=== PATIENT | female | born 1965 | race Caucasian/White ===

== ENCOUNTER 2023-03-11 15:43 | Outpatient (REF) | payer BC, SELFPAY ==
[2023-03-11 19:35] LABS: Abs Immature Grans 0.07 10^3/uL (0.0-0.06); Absolute Basophil Count 0.08 10^3/uL (0.0-0.2); Absolute Eosinophil Count 0.31 10^3/uL (0.0-0.7); Absolute Lymphocyte Count 3.27 10^3/uL (1.2-3.4); Absolute Monocyte Count 0.29 10^3/uL (0.1-0.8); Absolute Neutrophil Count 4.88 10^3/uL (1.2-6.7); Basophils % 0.9; Eosinophils % 3.5; HCT 41.2 % (36.0-46.0); HGB 14.5 g/dL (11.2-15.7); Immature Grans % 0.8; Lymphocytes % 36.7; MCH 31.3 pg (27.0-33.0); MCHC 35.2 % (32.0-36.0); MCV 89 fL (80-95); MPV 10.8 fL (8.0-11.0); Monocytes % 3.3; Neutrophils % 54.8; Platelet Count 270 10^3/uL (130-400); RBC 4.64 10^6/uL (3.93-5.22); RDW 11.8 % (11.7-14.6); RDW-SD 37.7 fL
[2023-03-11 19:50] LABS: ALT 21 U/L (14-59); AST 11 U/L (15-37); Albumin 3.6 g/dL (3.4-5.0); Alkaline Phosphatase 87 U/L (46-116); Anion Gap 5.3 mmol/L (3-11); BUN 5 mg/dL (7-18); Bilirubin, Total 0.3 mg/dL (0.2-1.0); CO2 29.7 mmol/L (21.0-32.0); CREATININE 0.6 mg/dL (0.55-1.02); Calculated LDL 137 mg/dL (<100); Chloride 101 mmol/L (98-107); Cholesterol 233 mg/dL (<200); Estimated GFR 103.33 (mL/min/1.73m2); HDL Cholesterol 47 mg/dL (40-60); Potassium 4.2 mmol/L (3.5-5.1); Sodium 136 mmol/L (136-145); Total Protein 7.7 g/dL (6.4-8.2); Triglyceride 245 mg/dL (<150)
[2023-03-11 20:06] LABS: Glucose 311 mg/dL (74-106)
[2023-03-11 20:07] LABS: Hemoglobin A1C 10.1 % (<5.7)
== END 2023-03-11 15:44 | disposition home or self-care (01) ==
LOC: NCHCN 15:43
PROVIDERS: Visit Provider Student in an Organized Health Care Education/Training Program
DX: E11.9 Type 2 diabetes mellitus without complications (principal); E55.9 Vitamin D deficiency, unspecified; R68.89 Other general symptoms and signs
CPT/HCPCS: 80053; 80061; 82306; 83036; 84443; 85025

== ENCOUNTER 2024-03-15 23:13 | Emergency (ER) | payer OTHER, SELFPAY ==
[2024-03-15 23:17] VITALS: BP 160/75; PULSE 80; RESP 18; TEMP 36.3; O2SAT 100
--- NOTE | 2024-03-15 23:56 | ED.GENADUL_ITS ---
Discharge Plan Disposition Patient Disposition: Home Condition: Good Discharge Details Clinical Impression: Skin lesion of back Primary Care Provider: GAEL GARAY ED Provider: Mitch Crowell Home Meds and New Rx's Prescriptions: New hydroxyzine HCl 25 mg tablet 25 mg PO TID PRNQty: 30 0RF No Action cyclobenzaprine 5 mg tablet 5 mg PO TID PRN gabapentin 100 mg capsule 200 mg PO TID insulin glargine [Lantus Solostar U-100 Insulin] 100 unit/mL (3 mL) insulin pen 24 unit subcut QAM metformin 500 mg tablet extended release 24 hr 500 mg PO DAILY Ozempic 0.25 mg or 0.5 mg (2 mg/3 mL) pen injector 0.25 mg subcut QWEEK Rx Instructions: for 4 weeks pravastatin 20 mg tablet 20 mg PO DAILY aspirin 81 mg capsule 81 mg PO DAILY clopidogrel [Plavix] 75 mg tablet 75 mg PO DAILY Discharge Instructions Instructions: Skin Rash ED Additional Instructions: At this time the lesions on your back and shoulders appear to demonstrate evidence of a mild infection. With your work location you likely have exposure to MRSA. Please apply the mupirocin ointment to each lesion 2-3 times per day. Please do this for the next 1 to 2 weeks or until the lesions resolve. As we discussed together this may have originated from an infected hair follicle, but there is also concern that it could be a form of vasculitis especially considering your autoimmune conditions. Please follow-up closely with your primary care provider for reassessment to evaluate for improvement after a week of therapy. As we discussed, you did state that you have a significant amount of hydroxyzine at home. If this is not you can take 25 mg every 8 hours as needed for itching. Otherwise use the prescription that was given. If you notice any worsening of your symptoms, or any new symptoms such as vomiting, diarrhea, fever, chills, shortness of breath, chest pain, numbness, weakness, or fainting , please return immediately to the emergency department for reevaluation. Please follow up with your primary care provider as soon as possible for reassessment and reevaluation. As always, it was a pleasure participating in your medical care today. Referrals: GAEL GARAY, [employer] [Primary Care Provider] - Discharge Data Discharge Date/Time-TO BE ENTERED AT DEPARTURE: 03/16/24 00:07 HPI General Date/Time Provider Initiated Documentation: 03/15/24 23:16 . HPI Narrative: This is a pleasant 59-year-old female with a past medical history of discoid lupus, peripheral arterial disease who is managed at [facility], and takes daily Plavix and aspirin, type 2 diabetes on both metformin and insulin, high cholesterol, rheumatoid arthritis, previous hysterectomy, who presents today for evaluation of a few scattered lesions on the shoulders and the back of her neck. Patient states that she infrequently but fairly regularly gets few small red lesions on her back and neck. She states that she does pick at these things, and eventually with washing soap and time they go away on their own. She developed a few of these lesions on her shoulders and the back of her neck recently, and has been washing them but they have not been going away. They have been present for the last week and a half. She does admit to having an intermittent fever, but is afebrile today. She does admit to notable itching. She does have hydroxyzine at home but has not taken it. She was previously on Rituxan but has recently stopped this. She has been washing these lesions daily with soap and water and does admit to some drainage and discharge. She denies any other complaints at this time. No other modifying factors. She denies any new medications. She denies any known history of vasculitis. The patient is an TRAILER PARK MANAGER, and does work at the [employer] Home Medications ?Medication ?Instructions ?Recorded ?Confirmed cyclobenzaprine 5 mg tablet 5 mg PO TID PRN 09/19/23 03/15/24 gabapentin 100 mg capsule 200 mg PO TID 09/19/23 03/15/24 insulin glargine 100 unit/mL (3 24 unit subcut QAM 09/19/23 03/15/24 mL) subcutaneous pen (Lantus Solostar U-100 Insulin) metformin 500 mg tablet,extended 500 mg PO DAILY 09/19/23 03/15/24 release 24 hr pravastatin 20 mg tablet 20 mg PO DAILY 09/19/23 03/15/24 semaglutide 0.25 mg or 0.5 mg (2 0.25 mg subcut QWEEK 09/19/23 03/15/24 mg/3 mL) subcutaneous pen injector (Ozempic) aspirin 81 mg capsule 81 mg PO DAILY 03/15/24 03/15/24 clopidogrel 75 mg tablet (Plavix) 75 mg PO DAILY 03/15/24 03/15/24 hydroxyzine HCl 25 mg tablet 25 mg PO TID PRN #30 tabs 03/15/24 Previous Rx's ?Medication ?Instructions ?Recorded hydroxyzine HCl 25 mg tablet 25 mg PO TID PRN #30 tabs 03/15/24 Allergies Allergy/AdvReac Type Severity Reaction Status Date / Time hydrocodone Allergy Unknown Other (See Verified 03/15/24 23:20 Comment) hydroxychloroquine Allergy Unknown Other (See Verified 03/15/24 23:20 Comment) morphine Allergy Unknown Other (See Verified 03/15/24 23:20 Comment) trazodone Allergy Unknown Other (See Verified 03/15/24 23:20 Comment) General Stated Complaint: RashLesion MEGAN: 4 Exam Narrative Exam Narrative: 1.Const: Well-nourished, Well-developed, appearing stated age 2.Eyes: PERRL, no conjunctival injection, and symmetrical lids. 3.ENT: Atraumatic external nose and ears. Moist MM. Neck: Symmetric, trachea midline, No thyromegaly. 4.CVS: +S1/S2, Peripheral pulses 2+ and equal in all extremities. Brisk capillary refill in all extremities. 5.RESP: Unlabored respiratory effort. Clear to auscultation bilaterally. No wheezes rales or rhonchi 6.GI: Soft, Nontender/Nondistended, No hepatosplenomegaly. No guarding or rebound. 7.MSK: Normocephalic/Atraumatic, Extremities w/o deformity or ttp No cyanosis or clubbing, Normal movement of all extremities 8.Skin: Warm, Dry. 4 small lesions are noted on the left and right shoulder, back and then posterior aspect of the neck. There is mildly erythematous with s lightly diffuse border. Total diameter is probably around 1 to 2 cm. In the center is an eschar which is brown in color on the 2 of the lesions, no eschar present on one of the lesions, and a mild ulcer like component noted on the fourth lesion. No active drainage. No fluctuance. No induration to suggest abscess. Negative Nikolsky sign. No large vesicles or bulla. No palpable purpura. No oral lesions. No mucosal lesions. No evidence of severe cellulitis. No evidence of vaccine preventable rash. 9.Neuro: hand decorator II-XII grossly intact. Sensation grossly intact, no focal neurologic deficits. 10.Psych: (AAO) x3. Appropriate mood and affect Course Vital Signs Vital signs: Vital Signs Temperature 36.3 C L 03/15/24 23:17 Pulse 80 03/15/24 23:17 Respiratory Rate 18 03/15/24 23:17 Blood Pressure 160/75 H 03/15/24 23:17 Pulse Oximetry 100 03/15/24 23:17 Temperature 36.3 C L 03/15/24 23:17 Temperature Source Temporal Artery Scan 03/15/24 23:17 Pulse 80 03/15/24 23:17 Respiratory Rate 18 03/15/24 23:17 Blood Pressure 160/75 H 03/15/24 23:17 Blood Pressure Position Sitting 03/15/24 23:17 Pulse Oximetry 100 03/15/24 23:17 Oxygen Delivery Method Room Air 03/15/24 23:17 Oxygen Flow Rate 0 03/15/24 23:17 Pain Level 10 03/15/24 23:17 Medical Decision Making This is a pleasant 59-year-old female with a past medical history of discoid lupus, peripheral arterial disease who is managed at [facility], and takes daily Plavix and aspirin, type 2 diabetes on both metformin and insulin, high cholesterol, rheumatoid arthritis, previous hysterectomy, who presents today for evaluation of a few scattered lesions on the shoulders and the back of her neck. Patient states that she infrequently but fairly regularly gets few small red lesions on her back and neck. She states that she does pick at these things, and eventually with washing soap and time they go away on their own. She developed a few of these lesions on her shoulders and the back of her neck recently, and has been washing them but they have not been going away. They have been present for the last week and a half. She does admit to having an intermittent fever, but is afebrile today. She does admit to notable itching. She does have hydroxyzine at home but has not taken it. She was previously on Rituxan but has recently stopped this. She has been washing these lesions daily with soap and water and does admit to some drainage and discharge. She denies any other complaints at this time. No other modifying factors. She denies any new medications. She denies any known history of vasculitis. The patient is an TRAILER PARK MANAGER, and does work at the [employer] The patient's physical exam demonstrates 4 small lesions are noted on the left and right shoulder, back and then posterior aspect of the neck. There is mildly erythematous with slightly diffuse border. Total diameter is probably around 1 to 2 cm. In the center is an eschar which is brown in color on the 2 of the lesions, no eschar present on one of the lesions, and a mild ulcer like component noted on the fourth lesion. No active drainage. No fluctuance. No induration to suggest abscess. Negative Nikolsky sign. No large vesicles or bulla. No palpable purpura. No oral lesions. No mucosal lesions. No evidence of severe cellulitis. No evidence of vaccine preventable rash. Additionally there are multiple old scars present that represent previous lesions that appear quite similar. Concern for potential folliculitis. These do not appear to represent evidence to suggest scabies, insect bite, significant cellulitis, abscess, erythema nodosum, anthrax, squamous cell carcinoma, or other significant abnormality. Differential does include a notably less likely potential vasculitis as the potential initial causative component that is made worse by picking and bacterial superinfection, potentially MRSA especially considering the patient's work and exposure to chronic care facilities. At this time we will recommend that the patient starts hydroxyzine for the itching. We will give mupirocin ointment here to apply to the lesions. Recommend conservative therapy for the next week with this. Skin cultures were not obtained secondary to concern for contamination. If the patient does not have improvement she may need biopsy or potential steroids if there is an autoimmune component. Recommend close follow- up with PCP. No current clinical evidence of staph scalded skin syndrome, erythema multiforme, erythema migrans, toxic epidermal necrolysis, Sanders-Dionicio syndrome, Kawasaki-like rash, meningococcemia, pemphigus vulgaris, or necrotizing fasciitis. Discussed red flags for which to return. I have extensively reviewed the treatment plan and discharge instructions with the patient. I have addressed all patient concerns at this time. The patient was made aware of what symptoms to monitor for that would warrant a return to the emergency department. Discussed the plan with the patient, they demonstrate verbal understanding and agreement with our assessment and plan at this time. The documentation in this chart was dictated using [employer] dictation software. Please excuse any dictation errors. Quality:SDOH Health Related Social Needs: No Data to Display PFSH All Active Problems (Updated 03/15/24 @ 23:58 by Mitch Crwoell DO) Skin lesion of back (Acute) Medical History (Updated 03/15/24 @ 23:58 by Mitch Crowell DO) Cramps of lower extremity Adrenal myelolipoma Rheumatoid arthritis Tenosynovitis Hyperlipidemia Atherosclerosis of coronary artery without angina pectoris Serrated polyp of colon Diabetic neuropathy Vitamin D deficiency Type 2 diabetes mellitus Complex regional pain syndrome i of left lower limb Peripheral neuropathic pain Pain management Degeneration of lumbar or lumbosacral intervertebral disc Lumbar spondylosis Chronic diarrhea History of depression Generalized anxiety disorder Steatosis of liver Esophagitis Muscle tightness Mass of thoracic vertebra History of neck pain Chronic pain Weak arterial pulse Surgical History (Updated 08/29/23 @ 14:48 by Milly Enriquez) Hx of total hysterectomy History of arthroscopic surgery of shoulder Social History (Updated 08/29/23 @ 14:49 by Milly Enriquez) Smoking/Tobacco Use Status: Current every day Tobacco Type: cigarettes Smoking risk assessment performed?: Yes Alcohol Intake: never Drug use: Never Substance use type: does not use Do you feel safe at home: Yes Do you feel safe in your relationship?: Yes
[2024-03-16] MEDS: Mupirocin 2% Oint. 22 GM TUBE TP (00:07)
== END 2024-03-16 00:07 | disposition home or self-care (01) ==
PROVIDERS: Emergency Provider Student in an Organized Health Care Education/Training Program; PCP Nurse Practitioner Family
DX: L98.9 Disorder of the skin and subcutaneous tissue, unspecified (principal); E11.9 Type 2 diabetes mellitus without complications; F17.210 Nicotine dependence, cigarettes, uncomplicated
CPT/HCPCS: 99283; 99284

== ENCOUNTER 2024-05-15 13:23 | Outpatient (REF) | payer OTHER, SELFPAY ==
[2024-05-15 16:10] LABS: ALT 20 U/L (14-59); AST 15 U/L (15-37); Albumin 3.4 g/dL (3.4-5.0); Alkaline Phosphatase 85 U/L (46-116); Anion Gap 8.7 mmol/L (3-11); BUN 14 mg/dL (7-18); Bilirubin, Total 0.3 mg/dL (0.2-1.0); CO2 28.3 mmol/L (21.0-32.0); CREATININE 0.7 mg/dL (0.55-1.02); Calcium 9.4 mg/dL (8.5-10.1); Calculated LDL 96 mg/dL (<100); Chloride 104 mmol/L (98-107); Cholesterol 180 mg/dL (<200); Estimated GFR 98.95 (mL/min/1.73m2); Glucose 137 mg/dL (74-106); HDL Cholesterol 47 mg/dL (>or=50); Potassium 4.3 mmol/L (3.5-5.1); Sodium 141 mmol/L (136-145); Total Protein 7.6 g/dL (6.4-8.2); Triglyceride 185 mg/dL (<150)
[2024-05-15 16:16] LABS: Hemoglobin A1C 6.2 % (<5.7)
== END 2024-05-15 13:24 | disposition home or self-care (01) ==
LOC: NCHCN 13:23
PROVIDERS: PCP Nurse Practitioner Family; Visit Provider Nurse Practitioner Family
DX: E11.9 Type 2 diabetes mellitus without complications (principal); E78.5 Hyperlipidemia, unspecified
CPT/HCPCS: 80053; 80061; 83036

== ENCOUNTER 2024-06-12 00:30 | Outpatient (CLI) | payer OTHER, SELFPAY ==
--- NOTE | 2024-06-12 | DI.MRI_ITS ---
Exam(s) MR LUMBAR SPINE WO EXAM: MR LUMBAR SPINE WO CLINICAL HISTORY: Intervertebral disc degeneration, lumbar region, with discogenic back pain. TECHNIQUE: Multiplanar multisequence MRI of the Lumbar spine was performed. MR MRI LUMBAR SPINE WO CONTRAST from 09/19/2019 MR MR CERVICAL SPINE WO from 06/12/2024 FINDINGS: Conus medullaris is at normal level. There is no evidence of conus mass nor subjacent clumping of in trathecal nerve roots to suggest arachnoiditis. The distal thecal sac appears unremarkable.There is no evidence of Tarlov intrasacral cysts nor other significant findings within the sacral canal Bones:There are no fractures nor ominous osseous lesions in the lumbar vertebral bodies and visualize d sacrum. Benign intraosseous hemangioma in the left side of the L2 vertebral body is again noted. There is no evidence of ominous marrow signal. No scoliosis evident. With respect to the individual disc space levels... T12-L1: Unremarkable L1-2: Normal disc height and signal. No disc herniation nor central canal stenosis.No foraminal steno sis L2-3: Normal disc height. Again noted is a left paracentral disc herniation which again exhibits unch anged 17 mm caudal migration behind the left side of the L3 vertebral body.This indents the left side of the thecal sac and occupies part of the left lateral recess. Size and appearance of this disc he rniation is similar to the prior lumbar spine MRI scan of October 2018.The disc herniation does not extend into the exiting left neural foramen and there is no foraminal stenosis on either side at thi s level. Osseous central canal dimensions are unchanged. No significant facet arthropathy. L3-4: Normal disc height. Again noted is annular bulging with central subligamentous disc protrusion . Mild central canal stenosis again noted due to the disc findings, short AP dimensions the pedicles , and mild prominence of the ligamentum flavum hypertrophy. Mild annular bulging extending into the floor of the exiting left neural foramen again noted, unchanged. There is mild left-sided foraminal stenosis. No right-sided foraminal stenosis.. Mild degenerative changes in the facet joints again no bhumi. L4-5: This level exhibits preserved disc height on the left side and some moderate disc space narrowi ng on the right side. There is central subligamentous annular bulging which slightly indents the ant erior thecal sac, similar to previous. There is mild central canal stenosis unchanged from previous. Mild right-sided foraminal stenosis. No left-sided foraminal stenosis. Mild facet joint degenerat jordan changes bilaterally. L5-S1: This level again exhibits anterolisthesis of L5 upon S1 which appears unchanged with approxima tely 6 millimeters anterior slippage, this related to bilateral pars defects at L5 level. This resul ts in increased AP dimension of the central canal. There is no focal disc herniation. There is mode rate disc space narrowing again noted. However, there is again noted significant impingement of the bilateral exiting nerve roots at this level. The lateral recesses are carried forward, compound by he disc height loss and this results in the exiting nerve roots being impinged between the overlying L5 pedicles and the subjacent pseudo herniation of the annulus, similar to previous. Soft tissues: paraspinal soft tissues appear unremarkable. IMPRESSION: 1. There are multilevel significant findings as described individually above. There are multilevel d isc herniations again noted. There is, however, minimal if any significant change when compared to [facility] most recent lumbar spine MRI which was in October 2018. 2. Due to the multilevel significant findings close correlation of the imaging findings with the neur ological examination is recommended. 3. The amount of anterolisthesis of L5 upon S1 (bilateral pars defects at L5 level) is similar to e prior study and there is again noted impingement of the bilateral exiting nerve roots within the ex iting neural foramina bilaterally at this level. DATA REPOSITORY:
--- NOTE | 2024-06-12 | DI.MRI_ITS ---
Exam(s) MR THORACIC SPINE WO EXAM: MR THORACIC SPINE WO CLINICAL HISTORY: Intervertebral disc degeneration, thoracic region, M51.34; migraine,G43.909 TECHNIQUE: Multiplanar multisequence MRI of the thoracic spine was performed without intravenous con trast. FINDINGS: OSSEOUS: There are no acute appearing thoracic vertebral fractures. No marrow edema. No significant thoracic vertebral height loss evident. There are no ominous osseous lesions in the thoracic vertebr ae. Multilevel shallow Schmorl's node invagination XXXX are again noted; nonacute. THORACIC SPINAL CORD: There is no abnormal signal in the cervical spinal cord and no evidence of foca l cord atrophy nor focal cord swelling. There is no evidence of syringomyelia nor significant spinal cord dysraphism. There is no evidence of mass at the conus medullaris. The position of the conus me dullaris is at normal level. SIGNIFICANT INDIVIDUAL LEVEL FINDINGS: T5-6: Right-sided disc protrusion at this level effaces the anterior thecal sac at this level and als o extends slightly caudally behind the right-side of the T5 vertebral body for a distance of 4 mm. C entral canal dimensions are lower normal at this level. There is no foraminal stenosis at this level . Findings at this level are similar to previous. T6-7: Central subligamentous disc bulge. Minimal thecal sac effacement. Spinal cord unremarkable at this level. Similar to previous. No significant central nor foraminal stenosis. T7-8: Central subligamentous disc protrusion at this level extends posteriorly 3 mm and is approximat leonel 6 mm wide. There is some effacement of the anterior thecal sac at this level but the disc protru petros does not indent the spinal cord and there is no abnormal signal in the cord at this level. Find ings appear similar to previous. PARASPINAL TISSUES: No significant masses nor fluid collections evident. IMPRESSION: 1. Compared to the MRI scan of September 2020 the disc findings at the 3 levels listed above are basical ly unchanged and not associated with significant central canal stenosis nor foraminal stenosis. 2. There are no new disc herniations in the thoracic spinal column 3. No new osseous findings. All vertebral bodies exhibit normal height and the previously described mild anterior wedging of T11 vertebral body remains very minimal and without progression. DATA REPOSITORY:
--- NOTE | 2024-06-12 | DI.MRI_ITS ---
Exam(s) MR CERVICAL SPINE WO EXAM: MR CERVICAL SPINE WO CLINICAL HISTORY: Degeneration of intervertebral disc; migraine, G43.909; chronic back pain TECHNIQUE: Multiplanar multisequence MRI of the cervical spine was performed without intravenous con trast. COMPARISON: No exams were available for comparison FINDINGS: CERVICOMEDULLARY JUNCTION: Intact with no evidence of cerebellar tonsillar ectopia. No obvious abnor mality of the odontoid process. No evidence of Chiari 1 malformation. CERVICAL SPINAL CORD: There is no abnormal signal in the cervical spinal cord and no evidence of foca l cord atrophy nor focal cord swelling. OSSEOUS:There are no cervical fractures evident. No significant osseous lesions in the cervical vert ebrae. The normal cervical curvature is maintained. INDIVIDUAL LEVELS: C2-3: No disc herniation nor central canal stenosis. No foraminal stenosis. No facet arthropathy. C3-4: There is posterior annular bulging slightly left of center without a prominent disc herniation. Central canal dimensions are lower normal. No facet arthropathy. No foraminal stenosis. C4-5: Normal disc height. Posteriorly there is annular bulging and there is a small right of center disc protrusion which extends posteriorly 2 mm and is approximately 5 mm wide, this effacing the ante rior thecal sac and contacting the anterior aspect of the cervical cord at this level. There is no a bnormal signal in the cord at this level. There is mild central canal stenosis. Facet joints appear unremarkable. The disc herniation does not extend into the exiting neural foramina and there is no significant foraminal stenosis on either side at this level. C5-6: This level exhibits chronic advanced disc space narrowing and anterior osseous lipping. Can Washer iorly there is relatively symmetrical annular bulging which effaces the anterior thecal sac. There i s mild central canal stenosis. Minimal degenerative changes in the facet joints. There are right-si ded Luschka joint osteophytes at this level and there is moderate foraminal stenosis on the right kristy e. Only mild foraminal stenosis on the opposite-left side. C6-7: This level exhibits normal disc height and signal with no evidence of disc herniation or centra l canal stenosis at this level and there is no facet arthropathy nor evidence of foraminal stenosis o n either side at this level. C7-T1: No disc herniation nor central canal stenosis. No facet arthropathy.No foraminal stenosis. IMPRESSION: 1. At C4-5 level there is a right of center disc protrusion which extends posteriorly 2 mm and is ap proximately 5 mm wide, effacing the anterior thecal sac at this level contacting the anterior aspect of the cervical spinal cord at this level. There is mild central canal stenosis at this level. No a bnormal signal in the cord. No evidence of foraminal stenosis at this level and facet joints appear unremarkable. 2. At C5-6 level there is mild central spinal canal stenosis and right-sided Luschka joint osteophyte s with moderate foraminal stenosis on the right side. Lesser amount of stenosis at the level of the exiting left neural foramen. 3. Milder findings at C 3-4 level as described above. The C6-7 level appears unremarkable DATA REPOSITORY:
== END 2024-06-12 00:50 ==
LOC: DI 00:30
PROVIDERS: PCP Nurse Practitioner Family; Visit Provider Nurse Practitioner Family
DX: M51.34 Other intervertebral disc degeneration, thoracic region (principal); G43.909 Migraine, unspecified, not intractable, without status migrainosus; M50.221 Other cervical disc displacement at C4-C5 level
CPT/HCPCS: 72141; 72146; 72148

== ENCOUNTER 2024-10-22 14:31 | Emergency (ER) | payer OTHER, SELFPAY ==
[2024-10-22] VITALS (27 sets, daily range): BP systolic 138–207; BP diastolic 67–116; PULSE 76–102; RESP 7–20; TEMP 36.3–36.7; O2SAT 95–100
--- NOTE | 2024-10-22 16:15 | DI.US_ITS ---
Exam(s) US LOWER EXTREMITY VENOUS LT EXAM: US LOWER EXTREMITY VENOUS LT CLINICAL HISTORY: LLE pain s/p procedure TECHNIQUE: Grayscale, color, and doppler imaging of the deep venous system of the left lower extremity was performed. COMPARISON: None FINDINGS: This is a limited study as apparently the patient was not able to tolerate the entire exam and therefore scanning at and below the level of the knee was not performed. There is no evidence of intraluminal thrombus and there is normal compression and augmentation demonstrated within the common femoral vein and femoral vein. The popliteal vein was not interrogated and the veins of the calf were also not studied. IMPRESSION: 1. No evidence of DVT in the left lower extremity above the level the knee. The veins of the calf as well as the popliteal vein were not examined as the patient apparently discontinued this examination following scanning of the femoral vein in the thigh.. DATA REPOSITORY:
[2024-10-22 16:58] LABS: Abs Immature Grans 0.03 10^3/uL (0.0-0.06); HCT 39.5 % (36.0-46.0); HGB 13.6 g/dL (11.2-15.7); Immature Grans % 0.3 %; MCH 31.2 pg (27.0-33.0); MCHC 34.4 % (32.0-36.0); MCV 91 fL (80-95); MPV 10.6 fL (8.0-11.0); Platelet Count 252 10^3/uL (130-400); RBC 4.36 10^6/uL (3.93-5.22); RDW 11.9 % (11.7-14.6); RDW-SD 39.9 fL; WBC 11.53 10^3/uL (4.4-10.8)
[2024-10-22 17:12] LABS: INR 1.0 (0.9-1.1); PTT Activated 25.7 sec (20.6-30.2); Prothrombin Time 10.0 sec (9.1-11.1)
[2024-10-22] MEDS: HYDROmorphone 2 MG/ML SYR 1 MG IVP (17:17)
[2024-10-22] MEDS: ACETAMINOPHEN 1,000 MG/100 ML BAG 400 MG IVPB (17:17)
[2024-10-22 17:19] LABS: ALT 18 U/L (14-59); AST 13 U/L (15-37); Albumin 4.0 g/dL (3.4-5.0); Alkaline Phosphatase 85 U/L (46-116); Anion Gap 10.5 mmol/L (3-11); BUN 9 mg/dL (7-18); Bilirubin, Total 0.6 mg/dL (0.2-1.0); CO2 28.5 mmol/L (21.0-32.0); Calcium 9.5 mg/dL (8.5-10.1); Chloride 98 mmol/L (98-107); Estimated GFR 102.69 (mL/min/1.73m2); Glucose 119 mg/dL (74-106); Potassium 3.6 mmol/L (3.5-5.1); Sodium 137 mmol/L (136-145); Total Protein 9.3 g/dL (6.4-8.2)
[2024-10-22] MEDS: Cyclobenzaprine 10 MG TAB PO (18:19)
--- NOTE | 2024-10-22 18:30 | DI.CT_ITS ---
Exam(s) CT ABD AORTA CTA W RUNOFF EXAM: CT ABD AORTA CTA W RUNOFF CLINICAL HISTORY: s/p left SFA stent now with pain. TECHNIQUE: Imaging Protocol: Axial CT angiography was performed with multi- slice acquisition and multi-planar and/or 3D reconstructions. CONTRAST MATERIAL: Intravenous: Omnipaque 350 Contrast volume:125 mL Oral: No COMPARISON: CT HEAD WITHOUT CONTRAST from 03/23/2007 FINDINGS: Vascular Structures: Abdomen and pelvis: Celiac [place]/SMA: No evidence of occlusion or significant stenosis. Renal Arteries: No evidence of occlusion or significant stenosis on the left. There is 50-70 percent narrowing of the right renal artery approximately 1 cm distal to its origin. (Series 4, image 156) Aorta: No aneurysm, occlusion or significant stenosis. No dissection. Atherosclerotic calcification is present. Iliac Arteries: Atherosclerotic calcification is seen in the common iliac arteries bilaterally with less than 50 percent stenosis. There is also atherosclerotic calcification in the internal iliac arteries bilaterally with less than 50 percent stenosis. The left external iliac artery is unremarkable. 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 There is infiltration of the soft tissues within and around the right iliopsoas muscle group suggestive of hematoma. Lower extremities: Right: Femoral: There is a stent seen in the mid right superficial femoral artery which is patent. There is less than 50 percent narrowing of the superficial femoral artery both proximal and distal to the stent. There is a small pseudoaneurysm in the distal common femoral artery. Deep Femoral Artery: No evidence of occlusion or significant stenosis. Popliteal: No evidence of occlusion or significant stenosis. There is atherosclerotic calcification with less than 50 percent stenosis. Knee Trifurcation: No evidence of occlusion or significant stenosis. Infrapopliteal arteries: No evidence of occlusion or significant stenosis. Left: Femoral: There is a patent stent in the mid left superficial femoral artery. There is less than 50 percent narrowing of the superficial femoral artery proximal to the stent. Atherosclerotic calcification is present. There is no occlusion. Deep femoral artery: No evidence of occlusion or significant stenosis. Popliteal: No evidence ofocclusion or significant stenosis. Knee Trifurcation: No evidence of occlusion or significant stenosis. Infrapopliteal arteries: No evidence of occlusion or significant stenosis. Soft Tissues: Lung bases: Clear. Liver: Normal density. No measurable mass. Portal, splenic and superior mesenteric veins: Unremarkable. Gallbladder and biliary tract: There is no cholelithiasis. The common duct measures 8 mm. No choledocholithiasis is seen. There is no evidence of a pancreatic mass. Pancreas: Normal density, no abnormal calcifications or inflammatory process. Spleen: Normal. Kidneys: Normal size, contour and axis. No radiodense stones or obstructive uropathy. No masses seen. Adrenal glands: There is an 8 mm fat density left adrenal nodule most consistent with a myelolipoma. The right adrenal gland is unremarkable. Lymph nodes: Unremarkable. Bladder: There is thickening of the wall of the urinary bladder. Reproductive organs: The uterus is absent. Bowel: No obstruction or bowel wall thickening. There is no evidence of an appendicitis. Peritoneal cavity: No ascites, collection or mesenteric inflammatory response. No free air. Bones: Within normal limits for the patient's age. There is L5 spondylolysis and grade 1 spondylolisthesis of L5 on S1. There is resultant moderately severe bilateral neural foraminal stenosis at L5-S1. Soft tissues: Unremarkable. Multiple venous varices are seen in the left lower extremity. IMPRESSION: 1. 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 2. Infiltration of the soft tissues in the right retroperitoneum around the iliopsoas muscle suspicious for hematoma. 3. Left superficial femoral artery stent which is patent. The infrapopliteal arteries are patent. 4. Venous varices are seen in the left lower extremity. 5. Right superficial femoral artery stent which is patent. The infrapopliteal arteries are patent. 6. Probable small pseudoaneurysm in the distal right common femoral artery. 7. Thickening of the wall of the urinary bladder. This can be seen with cystitis. Chronic bladder outlet obstruction should also be considered. Please correlate clinically. 8. The preliminary [facility] report was reviewed. RADIATION DOSE DELIVERED: 597.68mGy.cm Total DLP 597.68mGy.cm Total DLP DATA REPOSITORY: All CT scans at this facility are submitted to the National Radiology Data Registry (NRDR) Dose Index Registry (DIR) with the [employer] ([employer]). RADIATION OPTIMIZATION: All CT scans at this facility use at least one of these dose optimization techniques: automated exposure control; mA and/or kV adjustment per patient size (includes targeted exams where dose is matched to clinical indication); or iterative reconstruction.
[2024-10-22] MEDS: Omnipaque 350 MG/ML 100 ML BTL IJ (18:55)
[2024-10-22] MEDS: Omnipaque 350 MG/ML 50 ML BTL IJ (18:56)
[2024-10-22] MEDS: Normal Saline - Diluent 50 ML VIAL IJ ×2 (18:56)
[2024-10-22] MEDS: Normal Saline Flush 10 ML SYR IVP (18:57)
--- NOTE | 2024-10-22 21:07 | W.ED.GENAD ---
Discharge Plan Disposition Patient Disposition: Home Condition: Good Discharge Details Clinical Impression: Acute leg pain Primary Care Provider: GAEL GARAY ED Provider: Nicholas Sinha Home Meds and New Rx's Prescriptions: Continued mupirocin calcium 2 % cream 1 applic TP TID cyclobenzaprine 5 mg tablet 5 mg PO QHS methotrexate sodium 2.5 mg tablet 2.5 mg PO .2 times a week Rx Instructions: 4 tabs twice a week prednisone 5 mg tablet 5 mg PO TID Levemir U-100 Insulin 100 unit/mL solution 20 unit SC QAM albuterol sulfate 90 mcg/actuation aerosol powdr breath activated 2 inh IH Q6H duloxetine 60 mg capsule,delayed release(DR/EC) 60 mg PO BID metformin 500 mg tablet 500 mg PO BID lorazepam [Ativan] 0.5 mg tablet 0.5 mg PO QHS PRN Glucose Bits 1 gram tablet,chewable 1 gm PO Q15M PRN gabapentin 300 mg capsule 300 mg PO TID esomeprazole magnesium [Nexium] 20 mg capsule,delayed release(DR/EC) 20 mg PO DAILY hydroxyzine HCl 25 mg tablet 25 mg PO TID-QID PRN lidocaine HCl 2 % jelly 1 applic TP BID-QID PRN (Reason: pain) Qty: 30 4RF prednisone 5 mg tablet 5 mg PO .COMPLEX Qty: 147 0RF Rx Instructions: 20 mg BID x 7 days then 15 mg BID for 7 days then 10 mg BID for 7 days then 5 mg BID for 7 days then 5 mg daily x 7 days then discontinue; cyclobenzaprine 5 mg tablet 5 mg PO TID PRN gabapentin 100 mg capsule 200 mg PO TID insulin glargine [Lantus Solostar U-100 Insulin] 100 unit/mL (3 mL) insulin pen 24 unit subcut QAM metformin 500 mg tablet extended release 24 hr 500 mg PO DAILY Ozempic 0.25 mg or 0.5 mg (2 mg/3 mL) pen injector 0.25 mg subcut QWEEK Rx Instructions: for 4 weeks pravastatin 20 mg tablet 20 mg PO DAILY clopidogrel 75 mg tablet 75 mg PO DAILY nicotine 14 mg/24 hr patch 24 hour 1 patch transdermal DAILY valacyclovir [Valtrex] 1 gram tablet 1,000 mg PO DAILY tramadol 50 mg tablet 50 mg PO DAILY aspirin 81 mg capsule 81 mg PO DAILY clopidogrel [Plavix] 75 mg tablet 75 mg PO DAILY hydroxyzine HCl 25 mg tablet 25 mg PO TID PRNQty: 30 0RF Discharge Instructions Instructions: Leg Pain (ED) Additional Instructions: Your assessment today was reassuring that there is is not a vascular cause for your pain today. I suspect your pain is secondary to a muscle cramp as it responded to treatment here. I spoke with Dr. Torres of the vascular surgery team at [facility] who recommends that if you are having persistent pain that you may call to seek evaluation in their clinic as early as tomorrow. However if you are having severe pain, or changes in your motor or sensory function such as numbness, weakness, present to the nearest ER for further evaluation. Please follow-up with your primary care provider regarding your visit to the emergency department today. Be sure to discuss results of all test performed here today to include radiology, and laboratory testing as well as results for any pending cultures. Should your symptoms worsen, or if you develop new concerning symptoms, please return immediately emergency department for further evaluation. HPI General Date/Time Provider Initiated Documentation: 10/22/24 14:36. HPI Narrative: MDM/Narrative: Initial Assessment: 59-year-old female with pain, swelling, numbness, and pressure in left lower extremity post left SFA stenting on 10/19/2024. Tenderness and spasms in upper leg. Differential Diagnosis: - Post-stenting complications: Pain, swelling, numbness, and pressure in left lower extremity. Plan: Order ultrasound, administer IV Dilaudid and Tylenol for pain. ED Course: - IV Dilaudid administered. - IV Tylenol administered. - Ultrasound ordered. Ultrasound negative for DVT, labs only notable for mild leukocytosis, CTA shows patent SFA. [address] Torres of [facility] vascular surgery was reviewed the patient's case and imaging and lab works. He is in agreement that there does not appear to be a vascular cause of the patient's pain. He offers that the patient can call the clinic to be evaluated in tomorrow if she wishes. However he would note that if she develops any severe pain motor or sensory changes that she should present to the closest ER for stabilization. Plan of care shared with the family who are agreeable to plan for discharge. Clinical Impression: - Leg pain Disposition: - Discharge home. Return precautions: worsening bleeding, fainting, lightheadedness, chest pain, shortness of breath. - Follow-Up: General surgery clinic to schedule upper and lower endoscopy. This document was created with assistance from [id number]. The patient consented to its use. HPI: The patient is a 59-year-old female with a history of left superficial femoral artery (SFA) stenting, presenting for evaluation of her left lower extremity. She underwent surgical intervention on 10/19/2024, which was complicated by the necessity of a 12-inch stent and balloon angioplasty extending from the hip to the knee. During the procedure, she experienced ventricular tachycardia (VT) and was subsequently monitored overnight on telemetry, with no further complications. Yesterday, she ambulated with the assistance of a walker and experienced pain. This morning, she noted swelling in her left foot upon awakening, accompanied by a sensation of pressure and numbness. She also reports painful spasms in her upper leg. The patient describes feeling cold but denies any fevers or rashes. On admission on 10/19/2024, her feet were cyanotic. This is her third episode of issues with her left leg. She denies any groin pain. The sensation in her leg is described as pressure and numbness, rather than paresthesia. The leg feels tight, and the swelling is persistent. Despite the pain, she ambulated today but found it uncomfortable. She was advised to elevate her leg above the level of her toes, which exacerbated the spasms. The patient has a known allergy to morphine but tolerates hydromorphone (Dilaudid). She is uncertain if her previous reaction was due to the combination with rituximab (Rituxan), but she tolerates hydromorphone alone. ROS: Negative besides as mentioned above Exam: Vital signs: Reviewed. General Appearance: Alert and oriented. No acute distress. HEENT: NCAT, EOMI, not icteric. External ears normal. No rhinorrhea. Moist mucous membranes. Neck: Supple, full range of motion, no observable masses, No meningeal sign. Respiratory: No Respiratory distress. No tachypnea. Cardiovascular: Strong pulse in left lower extremity. Gastrointestinal: Soft, nondistended, No rebound tenderness. Musculoskeletal: Tenderness in left knee and upper leg. Swelling in left foot. Skin: Warm and dry, no rash. Neurological: Numbness and pressure sensation in left lower extremity. Psychiatric: Appropriate for situation. Labs: Laboratory Tests Range/Units 10/22/24 10/22/24 16:43 17:20 WBC (4.4-10.8) 10^3/uL 11.53 H RBC (3.93-5.22) 10^6/uL 4.36 Hgb (11.2-15.7) g/dL 13.6 Hct (36.0-46.0) % 39.5 MCV (80-95) fL 91 MCH (27.0-33.0) pg 31.2 MCHC (32.0-36.0) % 34.4 RDW (11.7-14.6) % 11.9 Plt Count (130-400) 10^3/uL 252 MPV (8.0-11.0) fL 10.6 Immature Gran % % 0.3 Neutrophils % % 68.4 Lymphocytes % % 23.2 Monocytes % % 4.3 Eosinophils % % 3.1 Basophils % % 0.7 Nucleated RBC % (0.0-0.3) % 0.0 Absolute Neutrophils (1.2-6.7) 10^3/uL 7.89 H Absolute Lymphocytes (1.2-3.4) 10^3/uL 2.67 Absolute Monocytes (0.1-0.8) 10^3/uL 0.50 Absolute Eosinophils (0.0-0.7) 10^3/uL 0.36 Absolute Basophils (0.0-0.2) 10^3/uL 0.08 PT (9.1-11.1) sec 10.0 INR (0.9-1.1) 1.0 APTT (20.6-30.2) sec 25.7 VBG Lactate (<or=2.0) mmol/L 0.9 Sodium (136-145) mmol/L 137 Potassium (3.5-5.1) mmol/L 3.6 Chloride (98-107) mmol/L 98 Carbon Dioxide (21.0-32.0) mmol/L 28.5 Anion Gap (3-11) mmol/L 10.5 BUN (7-18) mg/dL 9 Creatinine (0.55-1.02) mg/dL 0.6 Est GFR (CKD-EPI 2020) (mL/min/1.73m2) 102.69 Glucose (74-106) mg/dL 119 H Calcium (8.5-10.1) mg/dL 9.5 Total Bilirubin (0.2-1.0) mg/dL 0.6 AST (15-37) U/L 13 L ALT (14-59) U/L 18 Alkaline Phosphatase (46-116) U/L 85 Total Protein (6.4-8.2) g/dL 9.3 H Albumin (3.4-5.0) g/dL 4.0 ABO/Rh A Positive Antibody Screen NEGATIVE Radiology: PROCEDURE INFORMATION: Exam: CTA Abdominal Aorta and Bilateral Lower Extremities (Run-off) With Contrast Exam date and time: 10/22/2024 6:48 PM Age: 59 years old Clinical indication: Other: S/P left sfa stent now with pain; Prior surgery; Surgery date: 3-7 days post-operative; Surgery type: Left sfa stent placed 10/19/24 TECHNIQUE: Imaging protocol: Computed tomographic angiography of the of the abdominal aorta, pelvis and bilateral lower extremities with contrast. 3D rendering (Not supervised by radiologist): MIP and/or 3D reconstructed images were created by the technologist. Contrast material: OMNIPAQUE 350; Contrast volume: 125 ml; Contrast route: INTRAVENOUS (IV); COMPARISON: US LOWER EXTREMITY VENOUS LT 10/22/2024 4:54 PM FINDINGS: Aorta: No aortic aneurysm. No aortic dissection. Calcified and noncalcified plaque. Celiac trunk and mesenteric arteries: No occlusion or significant stenosis. Renal arteries: Suspected focal moderate stenosis in the proximal right renal artery (42 series 7). Left renal artery is patent. Right iliac arteries: No occlusion or significant stenosis. There is a focal dissection suspected in the right common iliac artery (335 series 4 through 396 series 4). Right femoral/popliteal arteries: No occlusion or significant stenosis. 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 There is subjacent edema in the right anterior thigh inguinal location and diffuse edema and mild hematoma in the right lower abdomen and right side of the pelvis. There is stent in the mid to distal right superficial femoral artery which appears patent. Mild stenosis of the right superficial femoral artery proximal and distal to the stent. The popliteal artery is patent with mild multifocal stenosis in the proximal popliteal artery. [facility] Preliminary Radiology Report Page 2 of 3 Right infrapopliteal arteries: Anterior tibial and peroneal arteries are patent . Peroneal artery is dominant . Diminutive posterior tibial artery which is patent. Left iliac arteries: No occlusion or significant stenosis in the common and external iliac arteries. Calcifications with multifocal mild stenosis without hemodynamically compromise in the left internal iliac artery. Left femoral/popliteal arteries: Mild multifocal stenosis in the left common femoral artery and proximal superficial artery prior to placement of the stent. There is stent noted in the mid to distal superficial femoral artery which appears patent. The popliteal artery is patent. Left infrapopliteal arteries: No occlusion or significant stenosis. Veins: There are multiple venous collaterals and early enhancement of the veins in the calf and foot suspicious of artery venous communication or fistula possibly in the sole of the foot (434 series 5). Liver: No mass. Gallbladder and biliary ducts: Unremarkable. No calcified stones. No ductal dilation. Pancreas: Unremarkable. No mass. No ductal dilation. Spleen: Normal. No splenomegaly. Adrenal glands: Normal. No mass. Kidneys and ureters: Normal. No mass. Stomach and bowel: Unremarkable. No obstruction. No mucosal thickening. Appendix: No evidence of appendicitis. Urinary bladder: There is diffuse mucosal thickening of the urinary bladder suspicious of cystitis. Reproductive: Unremarkable as visualized. Intraperitoneal space: Unremarkable. No free air. No significant fluid collection. Lymph nodes: No lymphadenopathy. Bones/joints: There is mild left knee joint effusion. Mild grade 1 anterolisthesis of L5 on S1 with pars interarticularis defects of L5. Disc degenerative changes with moderate loss of disc height at L5-S1. Soft tissues: There is asymmetric edema noted in the left calf and foot. IMPRESSION: 1. Stent in the mid to distal left superficial femoral artery which is patent. Trivessel runoff is patent on the left. There is early venous drainage with several venous collaterals seen in the calf and foot suspicious of abnormal communication of artery and vein or AV fistula possibly in the sole of the foot. 2. 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 3. Focal 4 x 4 x 7 mm pseudoaneurysm suspected in the right common femoral artery without significant adjacent hematoma and may be walled off . 4. Mild hematoma in the right lower abdomen and right side of the pelvis. 5. Stent in the right superficial femoral artery which is patent. Right trivessel runoff is patent 6. Focal moderate stenosis in the right renal artery. 7. Asymmetric edema noted in the left side of the calf and foot. 8. Urinary bladder wall is thickened suspicious of cystitis. 9. THIS REPORT CONTAINS FINDINGS THAT MAY BE CRITICAL TO PATIENT CARE. The findings were verbally communicated via telephone conference at 9:20 PM EDT on 10/22/2024 with Nicholas Sinha. 10. The findings were acknowledged and understood. Related Data Home Medications ?Medication ?Instructions ?Recorded ?Confirmed albuterol sulfate 90 mcg/actuation 2 inh inhalation Q6H 08/21/18 10/22/24 breath activated powder inhaler cyclobenzaprine 5 mg tablet 5 mg PO QHS 08/21/18 10/22/24 dextrose 1 gram chewable tablet 1 gm PO Q15M PRN 08/21/18 10/22/24 (Glucose Bits) duloxetine 60 mg capsule,delayed 60 mg PO BID 08/21/18 10/22/24 release esomeprazole magnesium 20 mg 20 mg PO DAILY 08/21/18 10/22/24 capsule,delayed release (Nexium) gabapentin 300 mg capsule 300 mg PO TID 08/21/18 10/22/24 hydroxyzine HCl 25 mg tablet 25 mg PO TID-QID PRN 08/21/18 10/22/24 insulin detemir U-100 100 unit/mL 20 unit subcut QAM 08/21/18 10/22/24 subcutaneous solution (Levemir U-100 Insulin) lidocaine HCl 2 % mucosal jelly 1 applic topical BID-QID PRN pain 08/21/18 10/22/24 #30 mL lorazepam 0.5 mg tablet (Ativan) 0.5 mg PO QHS PRN 08/21/18 10/22/24 metformin 500 mg tablet 500 mg PO BID 08/21/18 10/22/24 methotrexate sodium 2.5 mg tablet 2.5 mg PO .2 times a week 08/21/18 10/22/24 mupirocin calcium 2 % topical cream 1 applic topical TID 08/21/18 10/22/24 prednisone 5 mg tablet 5 mg PO TID 08/21/18 10/22/24 prednisone 5 mg tablet 5 mg PO .COMPLEX #147 tabs 09/25/18 10/22/24 cyclobenzaprine 5 mg tablet 5 mg PO TID PRN 09/19/23 10/22/24 gabapentin 100 mg capsule 200 mg PO TID 09/19/23 10/22/24 insulin glargine 100 unit/mL (3 24 unit subcut QAM 09/19/23 10/22/24 mL) subcutaneous pen (Lantus Solostar U-100 Insulin) metformin 500 mg tablet,extended 500 mg PO DAILY 09/19/23 03/15/24 release 24 hr pravastatin 20 mg tablet 20 mg PO DAILY 09/19/23 10/22/24 semaglutide 0.25 mg or 0.5 mg (2 0.25 mg subcut QWEEK 09/19/23 10/22/24 mg/3 mL) subcutaneous pen injector (Ozempic) aspirin 81 mg capsule 81 mg PO DAILY 03/15/24 10/22/24 clopidogrel 75 mg tablet (Plavix) 75 mg PO DAILY 03/15/24 10/22/24 hydroxyzine HCl 25 mg tablet 25 mg PO TID PRN #30 tabs 03/15/24 10/22/24 clopidogrel 75 mg tablet 75 mg PO DAILY 09/14/24 10/22/24 nicotine 14 mg/24 hr daily 1 patch transdermal DAILY 09/14/24 10/22/24 transdermal patch tramadol 50 mg tablet 50 mg PO DAILY 09/14/24 10/22/24 valacyclovir 1 gram tablet 1,000 mg PO DAILY 09/14/24 10/22/24 (Valtrex) Previous Rx's ?Medication ?Instructions ?Recorded lidocaine HCl 2 % mucosal jelly 1 applic topical BID-QID PRN pain 08/21/18 #30 mL prednisone 5 mg tablet 5 mg PO .COMPLEX #147 tabs 09/25/18 hydroxyzine HCl 25 mg tablet 25 mg PO TID PRN #30 tabs 03/15/24 Allergies Allergy/AdvReac Type Severity Reaction Status Date / Time hydrocodone Allergy Unknown Other (See Verified 10/22/24 14:38 Comment) hydroxychloroquine Allergy Unknown Other (See Verified 10/22/24 14:38 Comment) morphine Allergy Unknown Other (See Verified 04/25/24 14:33 Comment) trazodone Allergy Unknown Other (See Verified 10/22/24 14:38 Comment) No Known Drug Allergies Allergy Unknown Unverified 10/22/24 14:38 General Stated Complaint: Recheck MEGAN: 3 Course Vital Signs Vital signs: Vital Signs Temperature 36.3 C L 10/22/24 14:35 Pulse 86 10/22/24 14:35 Respiratory Rate 18 10/22/24 14:35 Blood Pressure 138/83 10/22/24 14:35 Pulse Oximetry 96 10/22/24 14:35 Temperature 36.3 C L 10/22/24 14:35 Pulse 80 10/22/24 18:31 Pulse 86 10/22/24 18:31 Respiratory Rate 20 10/22/24 18:31 Respiratory Effort Normal, Non-Labored 10/22/24 16:06 Respiratory Depth Normal 10/22/24 16:06 Respiratory Pattern Normal 10/22/24 16:06 Blood Pressure 170/71 H 10/22/24 18:31 Blood Pressure Mean 93 10/22/24 18:31 Blood Pressure Position Sitting 10/22/24 16:06 Pulse Oximetry 99 10/22/24 18:31 Oxygen Delivery Method Room Air 10/22/24 16:06 Oxygen Flow Rate 0 10/22/24 16:06 Pain Level 10 10/22/24 17:17 Lab/Test Results Lab/Test Results: Laboratory Tests Range/Units 10/22/24 10/22/24 16:43 17:20 WBC (4.4-10.8) 10^3/uL 11.53 H RBC (3.93-5.22) 10^6/uL 4.36 Hgb (11.2-15.7) g/dL 13.6 Hct (36.0-46.0) % 39.5 MCV (80-95) fL 91 MCH (27.0-33.0) pg 31.2 MCHC (32.0-36.0) % 34.4 RDW (11.7-14.6) % 11.9 Plt Count (130-400) 10^3/uL 252 MPV (8.0-11.0) fL 10.6 Immature Gran % % 0.3 Neutrophils % % 68.4 Lymphocytes % % 23.2 Monocytes % % 4.3 Eosinophils % % 3.1 Basophils % % 0.7 Nucleated RBC % (0.0-0.3) % 0.0 Absolute Neutrophils (1.2-6.7) 10^3/uL 7.89 H Absolute Lymphocytes (1.2-3.4) 10^3/uL 2.67 Absolute Monocytes (0.1-0.8) 10^3/uL 0.50 Absolute Eosinophils (0.0-0.7) 10^3/uL 0.36 Absolute Basophils (0.0-0.2) 10^3/uL 0.08 PT (9.1-11.1) sec 10.0 INR (0.9-1.1) 1.0 APTT (20.6-30.2) sec 25.7 VBG Lactate (<or=2.0) mmol/L 0.9 Sodium (136-145) mmol/L 137 Potassium (3.5-5.1) mmol/L 3.6 Chloride (98-107) mmol/L 98 Carbon Dioxide (21.0-32.0) mmol/L 28.5 Anion Gap (3-11) mmol/L 10.5 BUN (7-18) mg/dL 9 Creatinine (0.55-1.02) mg/dL 0.6 Est GFR (CKD-EPI 2020) (mL/min/1.73m2) 102.69 Glucose (74-106) mg/dL 119 H Calcium (8.5-10.1) mg/dL 9.5 Total Bilirubin (0.2-1.0) mg/dL 0.6 AST (15-37) U/L 13 L ALT (14-59) U/L 18 Alkaline Phosphatase (46-116) U/L 85 Total Protein (6.4-8.2) g/dL 9.3 H Albumin (3.4-5.0) g/dL 4.0 ABO/Rh A Positive Antibody Screen NEGATIVE PFSH All Active Problems (Updated 10/22/24 @ 21:09 by Nicholas Sinha MD) Acute leg pain (Acute) 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) Medical History (Updated 10/22/24 @ 21:09 by Nicholas Sinha MD) Cervical spinal stenosis Thoracic disc herniation Lumbar disc herniation Peripheral vascular disease Screening for osteoporosis Nicotine dependence Neuropathy due to type 2 diabetes mellitus Neck pain Mixed anxiety and depressive disorder Abnormal mammography Spondylolisthesis of lumbar region Rotator cuff injury Tightness of gastrocnemius muscle Degeneration of cervical intervertebral disc Cervical spondylosis Overweight with body mass index (BMI) 25.0-29.9 Dorsalgia Cramps of lower extremity Adrenal myelolipoma Rheumatoid arthritis Tenosynovitis Hyperlipidemia Atherosclerosis of coronary artery without angina pectoris Serrated polyp of colon Diabetic neuropathy Vitamin D deficiency Type 2 diabetes mellitus Complex regional pain syndrome i of left lower limb Peripheral neuropathic pain Pain management Degeneration of lumbar or lumbosacral intervertebral disc Lumbar spondylosis Chronic diarrhea History of depression Generalized anxiety disorder Steatosis of liver Esophagitis Muscle tightness Mass of thoracic vertebra History of neck pain Chronic pain Weak arterial pulse Surgical History (Updated 04/25/24 @ 14:33 by Arlyn Hyman) Hx of total hysterectomy History of arthroscopic surgery of shoulder Social History (Updated 09/14/24 @ 10:46 by Manasa Guillen) Smoking/Tobacco Use Status: Current every day Tobacco Type: cigarettes Smoking packs per day: 1.5 Smoking cigarettes per day: 30.0 Years smoked: 50 Smoking pack-years: 75.00 Smoking risk assessment performed?: Yes Alcohol Intake: never Drug use: Never Substance use type: does not use Do you feel safe at home: Yes Do you feel safe in your relationship?: Yes
--- NOTE | 2024-10-22 21:21 | DI.VRAD_ITS ---
PROCEDURE INFORMATION: Exam: CTA Abdominal Aorta and Bilateral Lower Extremities (Run-off) With Contrast Exam date and time: 10/22/2024 6:48 PM Age: 59 years old Clinical indication: Other: S/P left sfa stent now with pain; Prior surgery; Surgery date: 3-7 days post-operative; Surgery type: Left sfa stent placed 10/19/24 TECHNIQUE: Imaging protocol: Computed tomographic angiography of the of the abdominal aorta, pelvis and bilateral lower extremities with contrast. 3D rendering (Not supervised by radiologist): MIP and/or 3D reconstructed images were created by the technologist. Contrast material: OMNIPAQUE 350; Contrast volume: 125 ml; Contrast route: INTRAVENOUS (IV); COMPARISON: US LOWER EXTREMITY VENOUS LT 10/22/2024 4:54 PM FINDINGS: Aorta: No aortic aneurysm. No aortic dissection. Calcified and noncalcified plaque. Celiac trunk and mesenteric arteries: No occlusion or significant stenosis. Renal arteries: Suspected focal moderate stenosis in the proximal right renal artery (42 series 7). Left renal artery is patent. Right iliac arteries: No occlusion or significant stenosis. There is a focal dissection suspected in the right common iliac artery (335 series 4 through 396 series 4). Right femoral/popliteal arteries: No occlusion or significant stenosis. 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 There is subjacent edema in the right anterior thigh inguinal location and diffuse edema and mild hematoma in the right lower abdomen and right side of the pelvis. There is stent in the mid to distal right superficial femoral artery which appears patent. Mild stenosis of the right superficial femoral artery proximal and distal to the stent. The popliteal artery is patent with mild multifocal stenosis in the proximal popliteal artery. Right infrapopliteal arteries: Anterior tibial and peroneal arteries are patent . Peroneal artery is dominant . Diminutive posterior tibial artery which is patent. Left iliac arteries: No occlusion or significant stenosis in the common and external iliac arteries. Calcifications with multifocal mild stenosis without hemodynamically compromise in the left internal iliac artery. Left femoral/popliteal arteries: Mild multifocal stenosis in the left common femoral artery and proximal superficial artery prior to placement of the stent. There is stent noted in the mid to distal superficial femoral artery which appears patent. The popliteal artery is patent. Left infrapopliteal arteries: No occlusion or significant stenosis. Veins: There are multiple venous collaterals and early enhancement of the veins in the calf and foot suspicious of artery venous communication or fistula possibly in the sole of the foot (434 series 5). Liver: No mass. Gallbladder and biliary ducts: Unremarkable. No calcified stones. No ductal dilation. Pancreas: Unremarkable. No mass. No ductal dilation. Spleen: Normal. No splenomegaly. Adrenal glands: Normal. No mass. Kidneys and ureters: Normal. No mass. Stomach and bowel: Unremarkable. No obstruction. No mucosal thickening. Appendix: No evidence of appendicitis. Urinary bladder: There is diffuse mucosal thickening of the urinary bladder suspicious of cystitis. Reproductive: Unremarkable as visualized. Intraperitoneal space: Unremarkable. No free air. No significant fluid collection. Lymph nodes: No lymphadenopathy. Bones/joints: There is mild left knee joint effusion. Mild grade 1 anterolisthesis of L5 on S1 with pars interarticularis defects of L5. Disc degenerative changes with moderate loss of disc height at L5-S1. Soft tissues: There is asymmetric edema noted in the left calf and foot. IMPRESSION: 1. Stent in the mid to distal left superficial femoral artery which is patent. Trivessel runoff is patent on the left. There is early venous drainage with several venous collaterals seen in the calf and foot suspicious of abnormal communication of artery and vein or AV fistula possibly in the sole of the foot. 2. 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 3. Focal 4 x 4 x 7 mm pseudoaneurysm suspected in the right common femoral artery without significant adjacent hematoma and may be walled off . 4. Mild hematoma in the right lower abdomen and right side of the pelvis. 5. Stent in the right superficial femoral artery which is patent. Right trivessel runoff is patent 6. Focal moderate stenosis in the right renal artery. 7. Asymmetric edema noted in the left side of the calf and foot. 8. Urinary bladder wall is thickened suspicious of cystitis. 9. THIS REPORT CONTAINS FINDINGS THAT MAY BE CRITICAL TO PATIENT CARE. The findings were verbally communicated via telephone conference at 9:20 PM EDT on 10/22/2024 with Nicholas Sinha. 10. The findings were acknowledged and understood. Dictated and Authenticated by: Isiah Norris MD. Orderin Ernestine Peterson MD
== END 2024-10-22 22:06 | disposition home or self-care (01) ==
PROVIDERS: Emergency Provider General Practice; PCP Nurse Practitioner Family
DX: M79.652 Pain in left thigh (principal); G89.29 Other chronic pain; E78.5 Hyperlipidemia, unspecified; E11.40 Type 2 diabetes mellitus with diabetic neuropathy, unspecified; Z79.84 Long term (current) use of oral hypoglycemic drugs; Z79.02 Long term (current) use of antithrombotics/antiplatelets; Z79.4 Long term (current) use of insulin; Z98.890 Other specified postprocedural states
CPT/HCPCS: 75635; 80053; 86850; 86900; 86901; 96365; 96375; 99285; 83605; 85025; 85610; 85730; 93971; J0131; J1171; J3490; Q9967